=== PATIENT | female | born 1950 | race Caucasian/White ===

== ENCOUNTER 2016-09-18 19:31 | Emergency (ER) | payer OTHER ==
[~2016-09-18 19:31] MED LIST: ATENOLOL50 PO
[2016-09-18 21:45] VITALS: BP 154/86
== END 2016-09-18 21:45 | disposition home or self-care (01) ==
LOC: ED 19:31
DX: S93.401A Sprain of unspecified ligament of right ankle, initial encounter (principal); S93.402A Sprain of unspecified ligament of left ankle, initial encounter; I10 Essential (primary) hypertension; Z88.5 Allergy status to narcotic agent; Z79.899 Other long term (current) drug therapy; W19.XXXA Unspecified fall, initial encounter; Y93.89 Activity, other specified; Y92.89 Other specified places as the place of occurrence of the external cause; Y99.8 Other external cause status